=== PATIENT | male | born 1970 | race Caucasian/White ===

== ENCOUNTER 2019-05-11 08:38 | Observation (INO) | payer SELFPAY ==
[2019-05-11] VITALS (12 sets, daily range): BP systolic 103–145; BP diastolic 60–87; PULSE 57–91; RESP 16–18; TEMP 36.3–37; O2SAT 91–99; BMI 27.1; BMI 27.3; BMI 27.2
--- NOTE | 2019-05-11 08:45 | RAD_ITS ---
STUDY: X-RAY CHEST REASON FOR EXAM: Male, 48 years old. Generalized abdominal pain and chest pain. TECHNIQUE: Single AP portable view of the chest. COMPARISON: None. FINDINGS: Minimal increased markings are seen in the lingular segment of the left upper lobe suggestive of linear atelectasis and/or scarring. Scattered calcified granulomas. There is no demonstrated pleural abnormality. Normal size heart. Normal mediastinum and hong. Normal visualized pulmonary arteries. Normal visualized aortic arch and descending thoracic aorta. Normal visualized thoracic spine. Normal visualized ribs, clavicles, and shoulders. There is no demonstrated abnormality of the visualized soft tissue structures of the upper abdomen. RAD/Chest 1 View (Portable) IMPRESSION: Increased markings are seen in the lingular segment of the left upper lobe suggestive of linear atelectasis and/or scarring. Electronically Signed: Buster Gates, at 9:07 EDT , Service support ,
--- NOTE | 2019-05-11 08:46 | EKG12_ITS ---
Test Reason : Blood Pressure : / mmHG Vent. Rate : 075 BPM Atrial Rate : 075 BPM P-R Int : 190 ms QRS Dur : 090 ms QT Int : 372 ms P-R-T Axes : 050 013 031 degrees QTc Int : 415 ms Normal sinus rhythm Increased R/S ratio in V1, consider early transition or posterior infarct Abnormal ECG Confirmed by KELSEA COX, ROLAN ([id number]), commissioning editor EMILEE MENG ([id number]) on 05/15/2019 2:14:51 PM Referred By: JOSE Confirmed By:ROLAN ENAMORADO MD
--- NOTE | 2019-05-11 08:46 | US_ITS ---
STUDY: ABDOMINAL ULTRASOUND - RIGHT UPPER QUADRANT REASON FOR VISIT: Male, 48 years old. One day history of epigastric pain. TECHNIQUE: Ultrasound evaluation of the right upper quadrant was performed with real-time and static burdick-scale imaging. TECHNICAL QUALITY: Adequate. COMPARISON: None. FINDINGS: Liver: The liver is enlarged and measures 20.2 cm. There is increased echogenicity consistent with fatty infiltration. The bile ducts are within normal limits. There is hepatic color flow. The direction of portal flow is hepatopetal. There is no demonstrated mass lesion. Gallbladder: There is a mildly distended gallbladder. The gallbladder wall measures 2.9 mm. There is a positive sonographic Mathias's sign. There is no pericholecystic fluid. There are multiple echogenic structures within the gallbladder, consistent with multiple gallstones. Sludge is seen within the gallbladder lumen. Common Bile Duct (C.B.D.): The common bile duct measures 3.6 mm. Pancreas: There is nonvisualization of the pancreas due to overlying bowel gas. Right Kidney: Normal size of the right kidney. The right kidney measures 12.0 cm x 5.3 cm x 5.1 cm. Normal renal cortex. The right cortex measures 1.8 cm. There is no demonstrated renal mass or cyst. There is no right hydronephrosis. US/Gallbladder IMPRESSION: Hepatomegaly and fatty infiltration of the liver. Multiple gallstones and sludge in the gallbladder lumen. Electronically Signed: Buster Gates, at 11:02 EDT , Service support ,
[2019-05-11] MEDS: 0.9% Normal Saline 1,000 ML 1000 ML IV (08:55)
[2019-05-11] MEDS: Morphine 4 MG/ML Syringe IV ×3 (08:55→13:07)
[2019-05-11] MEDS: Ondansetron 4 MG/2 ML Vial IV (08:56)
[2019-05-11 09:12] LABS: Absolute Lymphocyte Count 2.45 X10^3/ul (0.83-4.51); Absolute Neutrophil Count 13.9 X10^3/uL (2.0-7.7); Basophil# 0.05 X10^3/uL; Basophil% 0.3 % (0-1); Eosinophil# 0.15 X10^3/uL; Eosinophils% 0.9 % (0-5); Hematocrit 45.5 % (40-54); Hemoglobin 16.2 g/dl (13.0-16.5); Lymphocyte # 2.45 X10^3/ul (4.0); Lymphocyte % 14.1 % (19-41); Mean Corp Hgb Conc 35.6 g/gl (32-36); Mean Corpuscular Hgb 31.2 pg (27.0-32.0); Mean Corpuscular Volume 87.7 fL (80-94); Mean Platelet Vol. 11.3 fl (6.2-12.0); Monocyte# 0.84 X10^3/uL; Monocyte% 4.8 % (0-10); Neutrophil # 13.86 X10^3/uL (2.7-7.7); Neutrophil % 79.7 % (47-70); Platelet Count 275 K/mm3 (150-450); RBC Distribution Width CV 12.8 % (11.6-14.6); Red Blood Count 5.19 M/mm3 (4.6-6.2); White Blood Count 17.4 K/mm3 (4.4-11.0)
[2019-05-11 09:14] LABS: POSITIVE COUNT NO; POSITIVE DIFFERENTIAL NO; POSITIVE MORPHOLOGY NO
[2019-05-11 09:24] LABS: ALB/GLOB Ratio 1.1 RATIO (0.9-2.4); AST(SGOT) 13 U/L (15-37); Alanine Aminotransfer ALT/SGPT 30 U/L (16-61); Albumin, Serum 3.9 g/dL (3.2-5.0); Alkaline Phosphatase 85 U/L (45-117); Anion Gap 8 (5-15); BUN 19 mg/dL (7-18); Calcium,Total 10.1 mg/dL (8.5-10.1); Chloride 107 mmol/L (98-107); Creatinine, Serum 1.12 mg/dL (0.70-1.30); EST Glomerular Filtration Rate 75 mL/min (>60); Est Glom Filt Rate - Afr Amer 90 mL/min (>60); Estimated Creatinine Clearance 90.46 ml/min; Globulin 3.6 g/dL (2.2-4.2); Glucose 130 mg/dL (74-106); Lipase 148 U/L (73-393); Potassium 3.9 mmol/L (3.5-5.1); Protein, Total 7.5 g/dL (6.4-8.2); Sodium Level 143 mmol/L (136-145)
[2019-05-11 09:34] LABS: Bacteria 0 SEEN /hpf (None Seen); Mucous, Urine 0 SEEN /hpf (<or=2+); Red Blood Cells-Urine 0 SEEN /hpf (0-5); White Blood Cells 0 SEEN /hpf (0-5)
[2019-05-11 10:01] LABS: Color, Urine Yellow (Yellow); Glucose, Dipstick Normal (Normal); Ketone-Dipstick Negative (Negative); Leukocyte Esterase-Dipstick Negative /ul (Negative); Nitrite-Dipstick Negative (Negative); Occult Blood-Urine Negative /ul (Negative); Protein-Dipstick Negative (Negative); Urine Bilirubin Dipstick Negative (Negative); Urine Clarity Sl. Cloudy (Clear); Urine Urobilinogen Normal (Normal)
[2019-05-11 10:04] LABS: Squamous Epithelial Cells - UA 0-5 SEEN /hpf (0-5)
--- NOTE | 2019-05-11 11:46 | ED.RN ---
dr. hatfield in to see pt. consent for or signed. no suite available as of yet.
--- NOTE | 2019-05-11 11:53 | ED.VISSUMM ---
- ER Visit Summary Date of Service: 05/11/19 Chief Complaint: Abdominal pain History of Present Illness: The patient is a 48 M who presents with upper abdominal pain, worse on the right side. This started suddenly 3 hours prior to presentation. Associated with nausea. Patient never had this in the past. Occasional chest pains into his left chest, but no other associated symptoms and no exertional component. No history of heart, lung, vascular, biliary, GI disease. Physical Examination: Afebrile and vital signs unremarkable. Patient appears uncomfortable. Mild diaphoresis. Heart regular rate and rhythm. Lungs clear. Abdomen tender in the upper hemiabdomen, worse on the right. No guarding or rebound. Test Results: EKG unremarkable. Troponin normal. White count 17.4. CMP and lipase unremarkable. Urinalysis unremarkable. Chest x-ray showed left upper lobe atelectasis versus scarring. Ultrasound showed multiple gallstones. Emergency Department Course and Treatment: Patient required pain medicine, fluids, Zofran. I believe his pain is secondary to biliary colic. He does have a leukocytosis. He was discussed with surgery, and Dr. Cruz will admit for an operation. I do not believe this is from a cardiac, respiratory, or vascular etiology. Treatment Plan: As above Disposition: Admission Impression: 1. Biliary colic This note was generated with Element [employer] dictation software. It may contain incorrect words, spelling, and punctuation that were not noted in review of the chart prior to signing ED Disposition - Plan for ED Patient: Referrals: Care Physician,No Primary [Primary Care Provider] -
[2019-05-11] MEDS: Piperacil/Tazobactam 3.375 GM/50 ML ML IV ×2 (12:03→21:10)
[2019-05-11] MEDS: 0.9% Normal Saline 1,000 ML 999 ML IV (12:03)
--- NOTE | 2019-05-11 13:46 | HP.PCM_ITS ---
Problem List (1) Acute cholecystitis Status: Acute History of Present Illness Date of Admission: 05/11/19 The patient is a 48 year old M who started having epigastric and right upper quadrant pain this morning. He also had nausea but no vomiting. He feels very ill. He is never had problems like this before. No fevers or chills. Past Medical History Allergies No Known Allergies Allergy (Verified 05/11/19 08:38) Home Medications: Ambulatory Orders Medication Instructions Recorded NK 05/11/19 Surgical History: appendectomy Smoking Status: Current every day smoker Tobacco Use: Cigarettes - *Family History Maternal History Items: No pertinent history Review of Systems Constitutional: Reports: Anorexia. Denies: Fever HEENT: Denies: Difficulty Swallowing Cardiovascular: Denies: Chest Pain Respiratory: Denies: Cough, Shortness of Breath Gastrointestinal: Reports: Abdominal Pain, Nausea. Denies: Hematemesis, Hematochezia, Vomiting Musculoskeletal: Denies: Joint Tenderness Skin: Denies: Jaundice Neurological: Denies: Balance problems Psychiatric: Denies: Anxiety Hematologic/ Lymphatic: Denies: Anemia VTE Information - Inpt Only VTE Present on Admission: No VTE Mechan Device Prophylaxis: SCD's Patient Problems: Active and Suspected Problems Acute cholecystitis (Acute) - Physical Exam General: Alert, Oriented x3 Neck: No JVD Lungs: Normal air movement Cardiovascular: Regular rate, Regular Rhythm Abdomen: Soft, Non-Distended, Tender - Tender in the right upper quadrant Extremities: No clubbing Skin: No rashes Musculoskeletal: No Muscle Wasting Neurological: Cranial nerves II-XII grossly intact Psych/Mental Status: Normal Affect Vital Signs Temp Pulse Resp BP Pulse Ox 97.7 F L 65 18 103/69 97 05/11/19 13:29 05/11/19 13:29 05/11/19 13:29 05/11/19 13:29 05/11/19 13:29 Oxygen Delivery Method Room Air Weight: 201 lb 5 oz Body Mass Index (BMI) 27.2 Laboratory Tests Past 24 Hrs 05/11/19 05/11/19 05/11/19 08:57 08:57 09:25 WBC 17.4 H RBC 5.19 Hgb 16.2 Hct 45.5 MCV 87.7 MCH 31.2 MCHC 35.6 RDW 12.8 RDW Differential 41.0 Plt Count 275 MPV 11.3 Immature Gran % (Auto) 0.200 Neut % (Auto) 79.7 H Lymph % (Auto) 14.1 L [place] % (Auto) 4.8 Eos % (Auto) 0.9 Baso % (Auto) 0.3 Absolute Neuts (auto) 13.9 H Absolute Lymphs (auto) 2.45 Total Counted Not Reportable Sodium 143 Potassium 3.9 Chloride 107 Carbon Dioxide 28.0 Anion Gap 8 BUN 19 H Creatinine 1.12 Estim Creat Clear Calc 90.46 Est GFR (MDRD) Af Amer 90 Est GFR (MDRD) Non-Af 75 BUN/Creatinine Ratio 17.0 Glucose 130 H Calcium 10.1 Total Bilirubin 0.30 AST 13 L ALT 30 Alkaline Phosphatase 85 Troponin I < 0.015 Total Protein 7.5 Albumin 3.9 Globulin 3.6 Albumin/Globulin Ratio 1.1 Lipase 148 Urine Color Yellow Urine Clarity Sl. Cloudy Urine pH 7.0 Ur Specific [place] 1.020 Urine Protein Negative Urine Glucose (UA) Normal Urine Ketones Negative Urine Occult Blood Negative Urine Nitrite Negative Urine Bilirubin Negative Urine Urobilinogen Normal Ur Leukocyte Esterase Negative Urine RBC 0 SEEN Urine WBC 0 SEEN Ur Squamous Epith Cells 0-5 SEEN Urine Bacteria 0 SEEN Urine Mucus 0 SEEN Clinical Impression(s) from Imaging Studies Chest X-Ray 05/11/19 08:45 IMPRESSION: Increased markings are seen in the lingular segment of the left upper lobe suggestive of linear atelectasis and/or scarring. Electronically Signed: Buster Gates, at 9:07 EDT , Service support , Gallbladder Ultrasound 05/11/19 08:46 IMPRESSION: Hepatomegaly and fatty infiltration of the liver. Multiple gallstones and sludge in the gallbladder lumen. Electronically Signed: Buster Gates, at 11:02 EDT , Service support , Assessment/Plan All Active Problems Acute cholecystitis (Acute) 48-year-old male with acute cholecystitis 1. The patient has right upper quadrant pain as well as an elevated white count. The patient's ultrasound of his gallbladder revealed a 3 mm gallbladder wall with positive Mathias sign and gallstones and sludge. I believe the patient has acute cholecystitis. I recommend laparoscopic cholecystectomy and started antibiotics. 2. I discussed the procedure in detail with the patient. I discussed the risks, benefits, and alternatives of the procedure. I discussed the risks including but not limited to bleeding, infection, injury to surrounding organs such as the liver, bile duct, bowels. I did discuss the possibility of having to convert to an open procedure as well as the possibility that if any injuries occurred this may necessitate further surgery at a tertiary care center. Humza Cruz MD Pager: [facility] [address] [place] [address], [address] [place] [address] Office:
--- NOTE | 2019-05-11 13:51 | NURSING ---
Addendum entered by Gin Keaen 05/11/19 13:59: pt taken to AC when report was being called. Original Note: Report called to Ashlie in AC-
--- NOTE | 2019-05-11 14:40 | RAD_ITS ---
STUDY: INTRAOPERATIVE CHOLANGIOGRAM. REASON FOR EXAM: Male, 48 years old. Laparoscopic cholecystectomy. FLUOROSCOPY TIME (if supplied): (0:11) minutes/seconds TECHNIQUE: An intraoperative cholangiogram was performed by the surgeon. Imaging was submitted. COMPARISON: None. FINDINGS: The common bile duct is not dilated. No intraluminal filling defect is seen. There is free flow of contrast into the duodenum. RAD/Cholangiogram/ O R,Initial IMPRESSION: Unremarkable intraoperative cholangiogram. Electronically Signed: Buster Gates, at 10:23 EDT , Service support ,
[2019-05-11] MEDS: Bupiv/Epi 0.25% 30 ML Vial (15:19)
--- NOTE | 2019-05-11 15:22 | PCM.OPRPT ---
Problem List (1) Acute cholecystitis Status: Acute Report of Operation Date of Procedure: 05/11/19 Pre-Operative Diagnosis: Acute cholecystitis Post-Operative Diagnosis: Acute cholecystitis Surgery/Procedure Performed:: Laparoscopic cholecystectomy with cholangiogram Specimen's removed: Gallbladder and contents Description of Procedure: After obtaining informed consent patient was brought back to the operating room. General anesthesia was induced. The abdomen was prepped and draped in usual sterile fashion. A small midline incision was made superior to the umbilicus and deepened to the level of fascia. The fascia was elevated and incised. Next the peritoneum was elevated and incised in the same fashion. Finger sweep was performed and the Javier trocar was placed into the abdomen. The balloon was inflated. The abdomen was inflated to 15 mmHg. Next a camera was introduced into the abdomen and the abdomen was inspected. Next under direct visualization three 5-mm ports were placed one subxiphoid and 2 subcostal. Next the gallbladder was elevated and retracted toward the right shoulder. The gallbladder was very inflamed. The peritoneum was stripped from the gallbladder. The infundibulum was located and retracted laterally. Next the triangle of Calot was dissected and the cystic duct and cystic artery were identified. Cholangiograms were performed. The Emanuel clamp was used to clamp across the infundibulum and the catheter needle was inserted into the gallbladder. Under fluoroscopy contrast was instilled into the gallbladder and the common duct, cystic duct as well as proximal hepatic ducts were identified. There was good filling of the duodenum. There were no filling defects noted in the common bile duct. The clamp was removed as well as the needle and the infundibulum was grasped once more. Three hemolock clips were placed across the cystic duct. The cystic duct was then divided leaving 2 clips on the stump. The cystic artery was clipped and divided in the same fashion. The hook cautery was then used to take the gallbladder off of the gallbladder bed. Hemostasis was obtained. Gallbladder fossa was irrigated and no active bleeding or bile leakage was noted. Next the camera switched to a 5 mm camera and introduced in the subxiphoid port. An Endopouch bag was placed through the umbilical port and the gallbladder was placed into it. The gallbladder was then removed through the umbilical incision. The camera was then reinserted through the umbilical port. The gallbladder fossa was inspected once more and noted to be hemostatic with no leaking bile. The abdomen was suctioned dry. The 5 mm ports were removed under direct visualization. The umbilical port was then removed and the air was removed from the abdomen. Next using 2 0 Vicryl sutures the umbilical fascia was closed in a [id number] fashion. The umbilical port site was irrigated local anesthetic was administered to all the incisions. All the incisions were closed with interrupted subcuticular 4-0 Monocryl sutures followed by Steri-Strips and dressings. The patient was awoken and taken to PACU in stable condition. - Admit VTE Documentation VTE Mechan Device Prophylaxis: SCD's
--- NOTE | 2019-05-11 15:30 | GALL_PTH ---
PATIENT: JETT VILLANUEVA LOC: MS2 U#:[id number] AGE/SX: 48/M ROOM: [facility] [id number] RE05/11/[address]: Dr. Humza Cruz MD : 1970 BED: 1 DIS: 05/12/2019 SPEC #: [id number] RECD: 05/11/19 16:07 STATUS: CIRO EDVIN #: [id number] ROMINA: 05/11/19 15:[address]: Humza Cruz DEPT: SURGICAL PATHOLOGY RECD BY: Marlen Davis ENTERED: 05/14/19 08:47 SP TYPE: MANDY ASHLEY DR: No Primary Care Phys Tissues: Gallbladder, NOS Procedures: Surgery Specimen Level III HEADER OPERATION: Laparoscopic cholecystectomy with intraoperative cholangiography PRE-OP DIAGNOSIS: Acute cholecystitis TISSUE SUBMITTED: Gallbladder MICROSCOPIC DIAGNOSIS Gallbladder, cholecystectomy: Chronic cholecystitis and cholelithiasis. Benign pericystic lymph node with lipogranulomas and associated hemorrhage. AM:shilpa 05/15/19 COMMENT Case has been reviewed in consultation with Dr. Bolton who concurs with the above diagnosis. IDC:BERONICA MICROSCOPIC DESCRIPTION Slides are reviewed. GROSS DESCRIPTION Received is one container labeled with the patient's name and designated gallbladder. The specimen consists of a gallbladder measuring 13 cm in length and up to 4 cm in diameter. The external surface is pink-soto, smooth and glistening for the most part. Focally it is granular, hemorrhagic and contains cautery artifact. The gallbladder contains three greenish multifaceted ovoid stones measuring in aggregate 5 x 5 x 3 cm and 2 to 25 cmm in greatest dimension. The mucosa is bile-stained and without any mass lesions. The gallbladder wall measures up to 0.3 cm in thickness. Close to the cystic duct an ovoid hemorrhagic area is noted measuring 2.5 cm in greatest dimension. [employer] sections are submitted as follows: 1 - gallbladder and cystic duct, 2 - hemorrhagic area, entirely submitted. / BERONICA:shilpa 05/14/19 TC:3 CPT: 51555
[2019-05-11] MEDS: oxyCODONE 5 MG Tablet PO ×2 (17:11→21:10)
[2019-05-11] MEDS: 0.9% Normal Saline 1,000 ML 100 ML IV (17:11)
[2019-05-11] MEDS: 0.9% NaCl Peripheral Flush Adult/Peds IV (23:08)
[2019-05-11] MEDS: Morphine 2 MG/ML Syringe IV (23:09)
[2019-05-12] MEDS: oxyCODONE 5 MG Tablet PO ×3 (01:13→09:28)
[2019-05-12 01:22] VITALS: BP 119/65; PULSE 66; RESP 18; TEMP 36.6; O2SAT 92
[2019-05-12] MEDS: 0.9% Normal Saline 1,000 ML 100 ML IV (02:27)
[2019-05-12] MEDS: Piperacil/Tazobactam 3.375 GM/50 ML ML IV (05:11)
[2019-05-12 07:21] LABS: Absolute Lymphocyte Count 1.97 X10^3/ul (0.83-4.51); Absolute Neutrophil Count 15.7 X10^3/uL (2.0-7.7); Basophil# 0.01 X10^3/uL; Basophil% 0.1 % (0-1); Hematocrit 41.4 % (40-54); Hemoglobin 14.3 g/dl (13.0-16.5); Lymphocyte # 1.97 X10^3/ul (4.0); Lymphocyte % 10.6 % (19-41); Mean Corp Hgb Conc 34.5 g/gl (32-36); Mean Corpuscular Hgb 31.2 pg (27.0-32.0); Mean Corpuscular Volume 90.2 fL (80-94); Mean Platelet Vol. 10.9 fl (6.2-12.0); Monocyte# 0.88 X10^3/uL; Monocyte% 4.7 % (0-10); Neutrophil # 15.72 X10^3/uL (2.7-7.7); Neutrophil % 84.4 % (47-70); Platelet Count 239 K/mm3 (150-450); RBC Distribution Width CV 12.8 % (11.6-14.6); RBC Distribution Width SD 41.7 fl (35.1-43.9); Red Blood Count 4.59 M/mm3 (4.6-6.2); White Blood Count 18.6 K/mm3 (4.4-11.0)
[2019-05-12 07:22] LABS: POSITIVE COUNT NO; POSITIVE DIFFERENTIAL NO; POSITIVE MORPHOLOGY NO
[2019-05-12 07:40] LABS: Anion Gap 4 (5-15); BUN 12 mg/dL (7-18); BUN/Creat Ratio 12.2 RATIO (10-20); Calcium,Total 8.4 mg/dL (8.5-10.1); Chloride 109 mmol/L (98-107); Creatinine, Serum 0.98 mg/dL (0.70-1.30); EST Glomerular Filtration Rate 87 mL/min (>60); Est Glom Filt Rate - Afr Amer 106 mL/min (>60); Estimated Creatinine Clearance 103.38 ml/min; Glucose 103 mg/dL (74-106); Potassium 4.1 mmol/L (3.5-5.1); Sodium Level 141 mmol/L (136-145)
[2019-05-12 08:00] VITALS: BP 91/75; PULSE 72; RESP 14; TEMP 36.7; O2SAT 97
--- NOTE | 2019-05-12 08:16 | PCM.PN.SRG ---
Patient Problems: Active and Suspected Problems Acute cholecystitis (Acute) Subjective: Patient is doing well and tolerating regular diet. He has much less abdominal pain the before surgery. - Physical Exam General: Alert, Oriented x3 Neck: No JVD Lungs: Normal air movement Cardiovascular: Regular rate, Regular Rhythm Abdomen: Soft, Non-Distended Vital Signs Temp Pulse Resp BP Pulse Ox 98.0 F 72 14 91/75 97 05/12/19 08:00 05/12/19 08:00 05/12/19 08:00 05/12/19 08:00 05/12/19 08:00 Oxygen Flow Rate (L/min) 3 Oxygen Delivery Method Room Air Weight: 201 lb 5 oz Body Mass Index (BMI) 27.2 Intake and Output for Last 24 Hours 05/10/19 05/11/19 05/12/19 23:59 23:59 23:59 Intake Total 1856 / 2847 1906 / 1906 Output Total 500 / 500 Balance 1856 / 2347 1406 / 1406 Laboratory Tests Past 24 Hrs 05/11/19 05/11/19 05/11/19 08:57 08:57 09:25 WBC 17.4 H RBC 5.19 Hgb 16.2 Hct 45.5 MCV 87.7 MCH 31.2 MCHC 35.6 RDW 12.8 RDW Differential 41.0 Plt Count 275 MPV 11.3 Immature Gran % (Auto) 0.200 Neut % (Auto) 79.7 H Lymph % (Auto) 14.1 L [place] % (Auto) 4.8 Eos % (Auto) 0.9 Baso % (Auto) 0.3 Absolute Neuts (auto) 13.9 H Absolute Lymphs (auto) 2.45 Total Counted Not Reportable Sodium 143 Potassium 3.9 Chloride 107 Carbon Dioxide 28.0 Anion Gap 8 BUN 19 H Creatinine 1.12 Estim Creat Clear Calc 90.46 Est GFR (MDRD) Af Amer 90 Est GFR (MDRD) Non-Af 75 BUN/Creatinine Ratio 17.0 Glucose 130 H Calcium 10.1 Total Bilirubin 0.30 AST 13 L ALT 30 Alkaline Phosphatase 85 Troponin I < 0.015 Total Protein 7.5 Albumin 3.9 Globulin 3.6 Albumin/Globulin Ratio 1.1 Lipase 148 Urine Color Yellow Urine Clarity Sl. Cloudy Urine pH 7.0 Ur Specific [place] 1.020 Urine Protein Negative Urine Glucose (UA) Normal Urine Ketones Negative Urine Occult Blood Negative Urine Nitrite Negative Urine Bilirubin Negative Urine Urobilinogen Normal Ur Leukocyte Esterase Negative Urine RBC 0 SEEN Urine WBC 0 SEEN Ur Squamous Epith Cells 0-5 SEEN Urine Bacteria 0 SEEN Urine Mucus 0 SEEN 05/12/19 05/12/19 07:03 07:03 WBC 18.6 H RBC 4.59 L Hgb 14.3 Hct 41.4 MCV 90.2 MCH 31.2 MCHC 34.5 RDW 12.8 RDW Differential 41.7 Plt Count 239 MPV 10.9 Immature Gran % (Auto) 0.200 Neut % (Auto) 84.4 H Lymph % (Auto) 10.6 L [place] % (Auto) 4.7 Eos % (Auto) 0.0 Baso % (Auto) 0.1 Absolute Neuts (auto) 15.7 H Absolute Lymphs (auto) 1.97 Total Counted Not Reportable Sodium 141 Potassium 4.1 Chloride 109 H Carbon Dioxide 28.0 Anion Gap 4 L BUN 12 Creatinine 0.98 Estim Creat Clear Calc 103.38 Est GFR (MDRD) Af Amer 106 Est GFR (MDRD) Non-Af 87 BUN/Creatinine Ratio 12.2 Glucose 103 Calcium 8.4 L Total Bilirubin AST ALT Alkaline Phosphatase Troponin I Total Protein Albumin Globulin Albumin/Globulin Ratio Lipase Urine Color Urine Clarity Urine pH Ur Specific [place] Urine Protein Urine Glucose (UA) Urine Ketones Urine Occult Blood Urine Nitrite Urine Bilirubin Urine Urobilinogen Ur Leukocyte Esterase Urine RBC Urine WBC Ur Squamous Epith Cells Urine Bacteria Urine Mucus Medical Necessity - Tobacco Use Smoking Status: Current every day smoker Tobacco Use: Cigarettes Assessment/Plan All Active Problems Acute cholecystitis (Acute) 48-year-old male with acute cholecystitis 1. Patient has been doing well since surgery. He is tolerating a regular diet and had regular dinner with no nausea or vomiting. He is abdominal pain is well controlled. Discharge today, follow-up in 2 weeks. Humza Cruz MD Pager: [facility] [address] [place] [address], [address] [place] [phone] Office:
--- NOTE | 2019-05-12 08:17 | DCINST_ITS ---
Discharge Diet: Light diet - advance as tolerated Discharge Activity: Return to Normal Activity, May Not Drive - for 2-3 days or while taking narcotic pain medicataions., - - Do not drive, work heavy equipment or sign legal documents for 24 hours. May shower in (days): 1 - with the bandage in place. Lifting Restrictions: 20 lbs for 2 weeks Additional Activity Instructions:: Pain medication may cause nausea. You should typically eat light foods as you take your pain medications. Pain medication may also cause constipation. If this is a problem for you, please discuss with your doctor. Call your doctor if your incision/area has: Continuous Slow Oozing, Sudden Increased Bleeding, Increased Pain/ Swelling, Increased Redness, Foul Smelling Discharge, Fever of 101 or Higher Call your doctor if you observe: Fever of 101 or Higher Suture Line Care: Avoid Pulling/Pushing, Avoid Pinching/Bending Additional Dressing/Incision Instructions:: Leave operative bandaids on for 2 days. When you remove dressing, leave Steri-Strips on until your follow-up appointment, or until the Steri-Strips fall off on their own. Allergies/Adverse Reactions: Allergies No Known Allergies Allergy (Verified 05/11/19 08:38) Medications to take at Discharge Oxycodone [Oxyir] 5 - 10 mg PO Q4H PRN PRN 7 Days #40 tablet 05/12/19 The following prescriptions were given: Oxycodone [Oxyir] 5 - 10 mg PO Q4H PRN PRN 7 Days #40 tablet PRN Reason: Severe Pain (6-10/10) Transmission Status: Sent to [facility] Primary Care Physician: Care Physician,No Primary [Primary Care Provider] - Test Results: Test results from this visit will be discussed in further detail at your follow- up appointment, if applicable. Please Follow Up With: Humza Cruz MD When: Please call to schedule 2 week follow up appointment. [phone]
== END 2019-05-12 09:43 | disposition home or self-care (01) ==
LOC: ED 11:55 → MS2 12:05
PROVIDERS: Admitting Provider Surgery; Emergency Provider Emergency Medicine; Visit Provider Surgery
PROC: (CPT 47610; principal; 2019-05-11 15:10)
DX: K80.12 Calculus of gallbladder with acute and chronic cholecystitis without obstruction (principal); F17.210 Nicotine dependence, cigarettes, uncomplicated; R94.31 Abnormal electrocardiogram [ECG] [EKG]
CPT/HCPCS: 47563; 36415; 71045; 74300; 76000; 76705; 80048; 80053; 81001; 83690; 84484; 85025; 88304; 93005; 96361; 96365; 96366; 96375; 96376; 99218; 99284; J7030; A4216; G0378; J2405

== ENCOUNTER 2021-10-06 20:14 | Emergency (ER) | payer SELFPAY ==
[2021-10-06 20:15] VITALS: BP 133/74; PULSE 80; RESP 16; TEMP 36.6; O2SAT 99; BMI 27.1
--- NOTE | 2021-10-06 22:40 | CT_ITS ---
STUDY: CT BRAIN WITHOUT CONTRAST REASON FOR EXAM: Male, 51 years old. Dizziness RADIATION DOSAGE (If Supplied By Facility): CTDIvol = ( 44.99 ) mGy, DLP = ( 829.85 ) mGycm TECHNIQUE: Transaxial CT imaging of the brain was performed without administration of intravenous contrast material. Individualized dose optimization techniques were used for this CT. COMPARISON: No relevant priors. FINDINGS: Normal soft tissue structures. Normal calvarium. There is mild cerebral atrophy with widening of the extra-axial spaces and ventricular dilatation. There are areas of decreased attenuation within the white matter tracts of the supratentorial brain, consistent with microvascular disease changes. Normal basal ganglia and thalami. Normal brainstem. Normal cerebellum. There is no intracranial hemorrhage. There are no findings of an acute ischemic infarction. Normal visualized paranasal sinuses. CT/Brain/Head without Contrast IMPRESSION: Atrophy no evidence of acute hemorrhage infarct or edema. Electronically Signed: Michaela Cardona MD at 0:11 EST Tel , Service support ,
[2021-10-06 22:57] VITALS: BP 131/82; BP 132/82; BP 160/116; PULSE 47; PULSE 48; PULSE 62
--- NOTE | 2021-10-06 23:23 | EDS_ITS ---
HPI History of Present Illness Chief Complaint: Dizziness Narrative Narrative: Patient is a 51-year-old male who states that over the last 2 days he has noticed dizziness which he describes more as a sense of motion. He states that the symptoms seem to occur when he stands up. He reports that if he is still in sitting or lying down the symptoms resolve. He reports nausea and vomiting associate with the dizzy sensation but denies any vomiting or diarrhea prior to these beginning. He also denies any headache or family history of brain tumor. He states that he has difficulty getting around because each time he stands up he feels lightheaded and secondary to this comes in for evaluation [facility] Medical History Cholecystectomy planned Medical History no medical history Home Medications meclizine 25 mg PO TID PRN #30 tab 10/07/21 [Rx Last Taken Unknown] Allergy/AdvReac Type Severity Reaction Status Date / Time No Known Allergies Allergy Verified 05/11/19 08:38 Family History no significant family his Social History Smoking Status: Former smoker ROS ROS ED Constitutional Constitutional ED: Denies chills or fever(s) Eyes Eyes: Denies change in vision ENT ENT ED: Denies ear pain or sore throat Cardiovascular Cardiovascular: Denies chest pain Respiratory/Chest Respiratory/Chest: Denies cough or dyspnea Gastrointestinal Gastrointestinal: Reports nausea and vomiting; Denies abdominal pain or diarrhea Genitourinary Genitourinary ED: Denies dysuria Musculoskeletal Musculoskeletal: Denies myalgias Integumentary Denies rash Neurologic Neurologic: Reports other Details: Positive dizziness ; Denies headache(s) Hematologic/Lymphatic Hematologic/Lymphatic: Denies easy bleeding or easy bruising EXAM Physical Exam Const Vital Signs: 10/06/21 20:15 10/06/21 21:38 10/06/21 22:57 Temperature 97.9 F Temperature Source Temporal Pulse Rate 80 Pulse Rate [Lying] 62 Pulse Rate [Sitting] 48 L Pulse Rate [Standing] 47 L Respiratory Rate 16 Respiratory Effort Normal Respiratory Pattern Normal Blood Pressure 133/74 H Blood Pressure [Lying] 160/116 H Blood Pressure [Sitting] 132/82 H Blood Pressure [Standing] 131/82 H Blood Pressure Mean 93 Blood Pressure Mean [Lying] 130 Blood Pressure Mean [Sitting] 98 Blood Pressure Mean [Standing] 98 Pulse Ox 99 Oxygen Delivery Method Room Air Positive well nourished and well developed General Appearance ED: well developed HEENT Reports TM's clear and dry mucous membranes Tympanic Membrane ED: Yes TM's clear Mouth ED: Yes dry mucous membranes Mouth: dry mucous membranes Eyes PERRL and EOMs intact bilaterally General Eye ED: Negative for pale conjunctiva Neck supple Resp normal respiratory effort and clear to auscultation bilaterally Cardio regular rate and regular rhythm Rate: other Other Details: Radial pulses are +2-4 bilaterally are equal and symmetric GI normal to inspection, nondistended, normoactive bowel sounds, non-tender, non- distended and no masses GI Narrative: No voluntary guarding no rigidity no pulsatile mass Auscultation: normoactive bowel sounds Palpation: soft Extremity normal to inspection Neuro oriented x3 and CN's II-XII intact bilaterally Neuro Narrative: No pronator drift no dysmetria no truncal ataxia. There is mild horizontal nystagmus noted. NIH stroke scale score of 0 Sensorium / Orientation: alert Motor Exam: strength 5/5 throughout Psych mental status grossly normal Skin no rashes or lesions noted Skin Narrative: Skin turgor slightly increased MDM MDM MDM Narrative Medical decision making narrative: Patient presented to the ER with dizziness which she described as more of a sense of motion but also stated it was worse when he stood up. He had a normal neurologic exam but with the persistent dizziness I did elect to perform basic labs and a head CT. CT revealed no acute findings and blood work also revealed no clinically significant changes. Orthostatic vital signs were obtained and were positive and therefore he was given 2 L of fluid. Following this he reported feeling better and was able to ambulate with a steady gait and therefore he is safe for discharge Lab Data Attestation: I reviewed the patient's lab results. Labs: Laboratory Results - last 24 hr 10/06/21 10/06/21 22:53 22:53 WBC 10.3 RBC 4.60 Hgb 14.2 Hct 40.9 MCV 88.9 MCH 30.9 MCHC 34.7 RDW Std Deviation 39.8 RDW Coeff of Flako 12.2 Plt Count 182 MPV 11.1 Immature Gran % (Auto) 0.200 Neut % (Auto) 67.2 Lymph % (Auto) 25.0 Collier % (Auto) 5.9 Eos % (Auto) 0.9 Baso % (Auto) 0.8 Absolute Neuts (auto) 6.9 Absolute Lymphs (auto) 2.58 Nucleated RBC % 0 Differential Comment SCANNED Platelet Estimate ADEQUATE Sodium 143 Potassium 3.6 Chloride 113 H Carbon Dioxide 28.0 Anion Gap 2 L BUN 12 Creatinine 0.80 Estim Creat Clear Calc 122.60 Est GFR (MDRD) Af Amer 132 Est GFR (MDRD) Non-Af 109 BUN/Creatinine Ratio 15.0 Glucose 87 Calcium 9.2 Magnesium 2.1 Radiography Diagnostic Testing: Clinical Impression(s) from Imaging Studies Brain CT 10/06/21 22:40 IMPRESSION: Atrophy no evidence of acute hemorrhage infarct or edema. Electronically Signed: Michaela Cardona MD at 0:11 EST Tel , Service support , Discharge Plan Triage Chief Complaint: Dizziness ED Provider: John Paul Leach Dx/Rx/DC Orders Clinical Impression: Orthostatic hypotension, Peripheral vertigo Instructions: Orthostatic Hypotension, ED Vertigo, Unspecified Prescriptions: New meclizine 25 mg tablet 25 mg PO TID PRN (Reason: dizziness) Qty: 30 RF: 0 Primary Care Provider: Care Physician,No Primary Referrals: Marvin Mnedes MD [STAFF PHYSICIAN] - 3-5 Days if not improving Care Physician,No Primary [Primary Care Provider] - Disposition Disposition: Home, Self Care
[2021-10-06 23:27] LABS: Anion Gap 2 (5-15); BUN 12 mg/dL (7-18); Calcium,Total 9.2 mg/dL (8.5-10.1); Chloride 113 mmol/L (98-107); EST Glomerular Filtration Rate 109 mL/min (>60); Est Glom Filt Rate - Afr Amer 132 mL/min (>60); Glucose 87 mg/dL (74-106); Magnesium 2.1 mg/dL (1.6-2.6); Potassium 3.6 mmol/L (3.5-5.1); Sodium Level 143 mmol/L (136-145)
[2021-10-06 23:32] LABS: Absolute Lymphocyte Count 2.58 X10^3/uL (0.83-4.51); Absolute Neutrophil Count 6.9 X10^3/uL (2.0-7.7); Basophil# 0.08 X10^3/uL; Basophil% 0.8 % (0-1); Eosinophil# 0.09 X10^3/uL; Eosinophils% 0.9 % (0-5); Hematocrit 40.9 % (40-54); Hemoglobin 14.2 g/dL (13.0-16.5); Lymphocyte # 2.58 X10^3/ul (0.83-4.51); Mean Corp Hgb Conc 34.7 g/dL (32-36); Mean Corpuscular Hgb 30.9 pg (27.0-32.0); Mean Corpuscular Volume 88.9 fL (80-94); Mean Platelet Vol. 11.1 fl (6.2-12.0); Monocyte# 0.61 X10^3/uL; Monocyte% 5.9 % (0-10); NRBC Flagged by Analyzer 0 % (0-5); Neutrophil # 6.93 X10^3/uL (2.7-7.7); Neutrophil % 67.2 % (47-70); POSITIVE COUNT YES; Platelet Count 182 K/mm3 (150-450); RBC Distribution Width CV 12.2 % (11.6-14.6); RBC Distribution Width SD 39.8 fl (35.1-43.9); White Blood Count 10.3 K/mm3 (4.4-11.0)
[2021-10-06] MEDS: 0.9% Normal Saline 1,000 ML 999 ML IV (23:33)
[2021-10-06 23:39] LABS: Differential Indicated SCAN CRITERIA MET
[2021-10-06 23:55] LABS: Differential Comment SCANNED; Platelet Estimate ADEQUATE (ADEQ)
[2021-10-07] MEDS: 0.9% Normal Saline 1,000 ML 999 ML IV (00:49)
[2021-10-07 01:09] VITALS: BP 138/74; PULSE 62; RESP 15; O2SAT 96
== END 2021-10-07 01:10 | disposition home or self-care (01) ==
PROVIDERS: Emergency Provider Emergency Medicine
DX: I95.1 Orthostatic hypotension (principal); H81.399 Other peripheral vertigo, unspecified ear; Z87.891 Personal history of nicotine dependence
CPT/HCPCS: 70450; 80048; 83735; 85025; 96360; 96361; 99284; J7030; A4216